=== PATIENT | male | born 1975 | race Caucasian/White ===

== ENCOUNTER 2021-09-30 15:20 | Emergency (ER) | payer OTHER, SELFPAY ==
[2021-09-30 15:32] VITALS: BP 139/90; PULSE 79; RESP 14; TEMP 36.9; O2SAT 98
--- NOTE | 2021-09-30 15:47 | W.ED.UPPEXIN ---
HPI - Extremity Injury (Upper) General: Chief Complaint: Skin/Abscess/Foreign Body Stated Complaint: Nail puncture Left wrist Time Seen by Provider: 09/30/21 15:41 Source: patient Mode of arrival: ambulatory Limitations: no limitations History of Present Illness: Patient is a nice 46-year-old male who presents to ED today with a complaint of a nail puncture wound near his right wrist. Patient states he was tearing tin down from an old barn when one of the pieces of tin had a nail protruding from it. He states the nail struck the ulnar aspect of his right wrist. Last tetanus is unknown. MD complaint: injury to: right and wrist Onset (ago): hour(s) Other injuries: none Place: outdoors Severity: moderate Relieving factors: immobilization Exacerbating factors: movement of extremity Context: direct blow and other (puncture wound) Associated symptoms: Reports no associated symptoms; Denies weakness in extremities Review of Systems Const: Denies: fever(s), chills, body aches, fatigue or malaise Musc: Reports: extremity pain (R forearm/wrist); Denies: extremity swelling, joint swelling, joint redness, joint warmth or limited range of motion Skin/Breast: Reports: other (puncture wound R forearm/wrist) Neuro: Denies: numbness in extremities, weakness in extremities or sensory changes [facility] ED PFSH: Social History Smoking and tobacco status: former smoker Physical Exam Const: COMMON NORMALS: no acute distress, average body habitus, patient oriented x3, no limitations, healthy appearing, alert and well nourished Extremity: GENERAL: Yes normal exam except as noted LEFT UPPER EXTREMITY: Yes wrist and Yes hand & digits OTHER: see image documentation Full Arm Back Right: 1. small puncture wound a few cm proximal to ulnar styloid; no bleeding present; no erythema, streaking, discharge; patient maintains normal sensory distally; cap refill normal; full ROM of digits against resistance Neuro: COMMON NORMALS: patient oriented x3, moves all extremities, no focal motor deficits and no sensory deficits noted SENSORIUM/ORIENTATION: Yes alert Course Vital Signs: Vital signs: Vital Signs Temperature 98.4 F 09/30/21 15:32 Pulse Rate 79 09/30/21 15:32 Respiratory Rate 14 09/30/21 15:32 Blood Pressure 139/90 05/10/22 15:32 Pulse Oximetry 98 09/30/21 15:32 MDM - Extremity Injury (Upper) Medical Decision Making XR negative. Small metallic fb that was seen does not correspond to area of injury today. He has nothing to suggest tendon/nerve involvement. Will go ahead and place on abx for puncture wound from old/dirty barn nail. Tetanus given today. Return to ED precautions given. Lab Data Radiology Impressions Wrist X-Ray 09/30/21 15:52 IMPRESSION: 1. Small metallic foreign body in the soft tissues of the thumb. 2. No acute finding Discharge Plan Discharge Patient Disposition: Home Clinical Impression: Puncture wound of forearm, right Qualifiers: Encounter type: initial encounter Qualified Code(s): S51.831A - Puncture wound without foreign body of right forearm, initial encounter Condition: Stable Prescriptions: New cephalexin 500 mg capsule 500 mg PO Q6H 7 Days Qty: 28 0RF No Action gentamicin 0.3 % drops 2 drp ophthalmic (eye) TID 7 Days Qty: 5 0RF Discharge Orders: Discharge ED (Routine); Ordered 09/30/21 Ordered By: Ileana Langston Patient Instructions: Puncture Wound (DC) Coding Level of Care Code ED 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
--- NOTE | 2021-09-30 15:52 | XRR_ITS ---
PROCEDURE INFORMATION: Exam: XR Right Wrist Exam date and time: 09/30/2021 4:02 PM Age: 46 years old Clinical indication: Injury or trauma; Right; Injury details: History--nail puncture lat. RT. Wrist TECHNIQUE: Imaging protocol: XR Right wrist. Views: 3 or more views. COMPARISON: No relevant prior studies available. FINDINGS: Bones/joints: Normal. Soft tissues: There is a small metallic foreign body in the soft tissues along the dorsum of the thumb near the MCP joint. XR/XR wrist RT min 3V* [id number] IMPRESSION: 1. Small metallic foreign body in the soft tissues of the thumb. 2. No acute finding
[2021-09-30] MEDS: tetanus-diphtheria tox (adult) 0.5 mL SDV IM (16:29)
== END 2021-09-30 16:44 | disposition home or self-care (01) ==
PROVIDERS: Emergency Provider Physician Assistant
DX: S61.531A Puncture wound without foreign body of right wrist, initial encounter (principal); W45.0XXA Nail entering through skin, initial encounter; Z23 Encounter for immunization
CPT/HCPCS: 73110; 90471; 90714; 99283

== ENCOUNTER → 2023-03-02 10:01 | Outpatient (BNVA) | payer MEDICAID, SELFPAY | PROVIDERS: PCP Registered Nurse; Visit Provider Registered Nurse | DX: I10 Essential (primary) hypertension (principal); E78.5 Hyperlipidemia, unspecified | CPT/HCPCS: 80053; 80061; 85025 ==

== ENCOUNTER 2023-03-19 11:43 | Outpatient (CLI) | payer MEDICAID, SELFPAY ==
--- NOTE | 2023-03-19 | ECG_ITS ---
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 Interpretive Statements NAME OF STUDY: TREADMILL STRESS TEST INDICATION: CP/HTN/FAMILY H/O CAD Baseline blood pressure of 128/73 mm Hg, heart rate 77 beats per minute. EKG showed sinus rhythm with normal ST-Ts. ??? The patient exercised for 9 min 39 sec on a [standard [facility] protocol]. Patient attained a maximum heart rate of 154 beats per minute( 88 % of the maximum predicted heart rate) with a blood pressure at the peak exercise of 162/70 mm Hg. The EKG at the peak exercise revealed sinus tachycardia with no significant ST-T wave changes. Patient did [not have any chest pain or any significant arrhythmis with the exercise]??? During the recovery phase, there were no new changes. Blood pressure at the end of the recovery phase was 158/72 mm Hg with a heart rate of 96 beats per minute. ??? CONCLUSION: 1. Normal EKG response to treadmill exercise. 2. No exercise-induced chest pain or cardiac arrhythmia. 3. Excellent exercise tolerance, attained a maximum of 13.5 METs. 4. Baseline normal blood pressure with normal response to exercise. Electronically Signed On 03-24-2023 4:08:06 CDT by Laurel Cuba M.D. [id number]
[2023-03-19 12:11] VITALS: BMI 28.8
[2023-03-19 12:52] VITALS: BP 158/72; PULSE 98
== END 2023-03-19 11:44 | disposition home or self-care (01) ==
LOC: CDL 11:44
PROVIDERS: PCP Registered Nurse; Visit Provider Registered Nurse
DX: R07.9 Chest pain, unspecified (principal); I10 Essential (primary) hypertension; Z82.49 Family history of ischemic heart disease and other diseases of the circulatory system
CPT/HCPCS: 93017

== ENCOUNTER → 2023-05-03 13:18 | Outpatient (BNVA) | payer MEDICAID, SELFPAY | PROVIDERS: PCP Registered Nurse; Visit Provider Registered Nurse | DX: Z12.5 Encounter for screening for malignant neoplasm of prostate (principal); E55.9 Vitamin D deficiency, unspecified; Z12.11 Encounter for screening for malignant neoplasm of colon; Z00.00 Encounter for general adult medical examination without abnormal findings; Z71.85 Encounter for immunization safety counseling; I10 Essential (primary) hypertension; R05.8 Other specified cough; T46.4X5A Adverse effect of angiotensin-converting-enzyme inhibitors, initial encounter | CPT/HCPCS: 82306; G0103 ==

== ENCOUNTER 2023-06-10 09:01 | Day surgery (SDC) | payer MEDICAID, SELFPAY ==
[2023-06-10 09:12] VITALS: BP 141/90; PULSE 95; RESP 18; TEMP 36.5; O2SAT 100; BMI 29.0
[2023-06-10] MEDS: sodium chloride 0.9% 1,000 ML 30 ML IV (09:27)
--- NOTE | 2023-06-10 09:39 | P.ANESASSM_ITS ---
Pre-Anesthetic Assessment Height/Weight: Height 1.68 m Weight 81.647 kg Temp Pulse Resp BP Pulse Ox O2 Del Method 97.7 F 95 18 141/90 100 Room Air 06/10/23 09:12 06/10/23 09:12 06/10/23 09:12 06/10/23 09:12 06/10/23 09:12 06/10/23 09:12 Operation Date: 06/10/23 10:00 Proposed Procedures p 13015 - screening colon Risk G0121,Z12.11(Not Applicable) - Luiz Christensen MD Familial anesthetic complications: None Was Beta Eliezer taken within 24 hours: N/A Was Clonidine taken within 24 hours: N/A Last intake: Intake Last Liquid Date 06/09/23 Last Liquid Time 22:00 Last Solid Date 05/11/23 Last Solid Time 18:00 Social No alcohol and No tobacco former smoker Exam alert, oriented x 3, clear to auscultation bilaterally and regular rate & rhythm Airway Mallampati: Class I Dentition: full CV/HEM Hypertension Hepatic hep C Anesthetic Plan ASA status: 2 Anesthesia: MAC Risk of > 500 ml blood loss (7ml/kg in children): No Medications/Allergies Home Medications Medication Instructions Recorded Confirmed Last Taken Type multivitamin 1 tab PO DAILY 02/26/23 06/08/23 06/07/23 History losartan 100 mg tablet 100 mg PO DAILY 30 days #30 tabs 06/08/23 06/10/23 06/09/23 Rx Allergies Allergy/AdvReac Type Severity Reaction Status Date / Time No Known Allergies Allergy Verified 06/10/23 09:11 Current Medications Generic Name Dose Route Start Last Admin Trade Name Ambrocioq PRN Reason Stop Dose Admin Sodium Chloride 1,000 mls @ 30 mls/hr 06/10/23 09:15 06/10/23 09:27 Sodium Chloride 0.9% IV 30 mls/hr .Q24H GREG Administration PFSH Anesthesia Medical History Intermittent chest pain Family history of heart disease History of hepatitis C Surgical History No pertinent past surgical history Family History Brother Cancer, Onset Age: 44 pancrease Grandmother Diabetes maternal Father Hypertension Myocardial failure in his 60's from ID Stroke Grandfather Stroke maternal and paternal Myocardial failure maternal and paternal Denies family history of CAD (coronary artery disease) Dementia Hyperlipidemia Chronic kidney disease (CKD) Lung disease Social History Smoking and tobacco/nicotine status: former use of tobacco/nicotine Quit status (tobacco/nicotine): has quit using Year quit tobacco: 2017 Alcohol intake: former Substance/Drug Use: former Adopted: No Caregiver/support person: No Lives independently: No Household members: spouse Marital status: service: No Current occupational status: employed Sexually active: Yes Do you think of yourself as: Straight/Heterosexual Current gender identity: Male Kayleen/Mormonism: Zoroastrian Data Anesthesia Cardiac Studies: No Data to Display
--- NOTE | 2023-06-10 10:13 | P.HP_ITS ---
Same Day Surgery H&P Indication for Procedure/HPI DATE OF PROCEDURE: June 10, 2023 CHIEF COMPLAINT/INDICATIONFOR SURGICAL PROCEDURE: need for screening colonoscopy PREOP DIAGNOSIS: need for screening colonoscopy PLANNED PROCEDURE: Operation Date: 06/10/23 10:00 Proposed Procedures p 26585 - screening colon Risk G0121,Z12.11(Not Applicable) - Luiz Christensen MD Medications/Allergies* Home Medications Medication Instructions Recorded Confirmed Type multivitamin 1 tab PO DAILY 02/26/23 06/08/23 History Allergies/Adverse Reactions Allergy/AdvReac Type Severity Reaction Status Date / Time No Known Allergies Allergy Verified 06/10/23 09:11 Current Medications: Generic Name Dose Route Start Last Admin Trade Name Freq PRN Reason Stop Dose Admin Sodium Chloride 1,000 mls @ 30 mls/hr 06/10/23 09:15 06/10/23 09:27 Sodium Chloride 0.9% IV 30 mls/hr .Q24H GREG Administration Pertinent History/Comorbid Conditions* Medical History (Updated 04/01/23 @ 14:56 by GONZALO Garcia) Intermittent chest pain Family history of heart disease History of hepatitis C Surgical History (Updated 02/26/23 @ 13:50 by GONZALO Ortiz) No pertinent past surgical history Family History (Updated 02/26/23 @ 13:46 by GONZALO Ortiz) Brother Father Diabetes Grandmother maternal Myocardial failure Father in his 60's from MS Grandfather maternal and paternal Cancer Brother, Onset Age: 44 pancrease Hypertension Father Stroke Father Grandfather maternal and paternal Denies family history of CAD (coronary artery disease) Dementia Hyperlipidemia Chronic kidney disease (CKD) Lung disease Social History Smoking and tobacco/nicotine status: former use of tobacco/nicotine Quit status (tobacco/nicotine): has quit using Year quit tobacco: 2017 Alcohol intake: former Substance/Drug Use: former Adopted: No Caregiver/support person: No Lives independently: No Household members: spouse Marital status: service: No Current occupational status: employed Sexually active: Yes Do you think of yourself as: Straight/Heterosexual Current gender identity: Male Kayleen/Taoism: Confucianism Pertinent Exam Findings alert, oriented x 3 and clear to auscultation bilaterally Recommendations Surgery/Procedure today Coding Level of Care Code Acute Code for Chg Fwd
[2023-06-10 10:42] VITALS: BP 110/70; PULSE 81; RESP 18; TEMP 36.1; O2SAT 96
[2023-06-10 10:52] VITALS: BP 135/96; PULSE 72; RESP 16; O2SAT 100
--- NOTE | 2023-06-10 11:15 | ANE.PACU2 ---
Inpatient post-anesthesia follow up: Airway intact: Yes Vital signs: Temperature 97.0 F Pulse Rate 72 Respiratory Rate 16 Blood Pressure 135/96 Pulse Oximetry 100 Oxygen Delivery Me thod Room Air Oxygen Flow Rate Fraction of Inspir ed Oxygen Hydration adequate: Yes Nausea and vomiting: No Pain level: 1 Mental status: Baseline
== END 2023-06-10 11:15 | disposition home or self-care (01) ==
PROVIDERS: PCP Registered Nurse; Visit Provider Surgery
PROC: 0DJD8ZZ Inspection of Lower Intestinal Tract, Via Natural or Artificial Opening Endoscopic (ICD-10-PCS; CPT 45378; principal; 2023-06-10 10:00)
DX: Z12.11 Encounter for screening for malignant neoplasm of colon (principal); Z82.49 Family history of ischemic heart disease and other diseases of the circulatory system; Z86.19 Personal history of other infectious and parasitic diseases; Z87.891 Personal history of nicotine dependence
CPT/HCPCS: 45378; J2704; J7030

== ENCOUNTER → 2023-07-19 15:28 | Outpatient (BNVA) | payer MEDICAID, SELFPAY | PROVIDERS: PCP Registered Nurse; Visit Provider Registered Nurse | DX: M54.9 Dorsalgia, unspecified (principal) | CPT/HCPCS: 81000 ==

== ENCOUNTER → 2023-08-17 10:03 | Outpatient (BNVA) | payer MEDICAID, SELFPAY | PROVIDERS: PCP Registered Nurse; Visit Provider Nurse Practitioner Family | DX: R07.81 Pleurodynia (principal) | CPT/HCPCS: 71046 ==

== ENCOUNTER → 2023-12-15 08:50 | Outpatient (BNVA) | payer MEDICAID, SELFPAY | PROVIDERS: PCP Registered Nurse; Visit Provider Registered Nurse | DX: L98.9 Disorder of the skin and subcutaneous tissue, unspecified (principal) | CPT/HCPCS: 88305 ==

== ENCOUNTER → 2024-06-20 14:41 | Outpatient (BNVA) | payer MEDICAID, SELFPAY | PROVIDERS: PCP Registered Nurse; Visit Provider Registered Nurse | DX: J06.9 Acute upper respiratory infection, unspecified (principal) | CPT/HCPCS: 87400 ==

== ENCOUNTER 2024-10-04 12:54 | Outpatient (CLI) | payer MEDICAID, SELFPAY ==
--- NOTE | 2024-10-04 13:05 | XR_ITS ---
WS: [id number] Exam: XR thoracic spine 3V* [id number] Date/Time of Exam: 10/04/2024 1:16 PM Reason For Exam: M54.6 - Pain in thoracic spine No fracture identified. No scoliosis. Paraspinal soft tissues are unremarkable. XR/XR thoracic spine 3V* [id number] IMPRESSION: 1. No fracture or malalignment.
--- NOTE | 2024-10-04 13:05 | XR_ITS ---
WS: [id number] No fracture noted. Slight spondylosis. Posterior elements are intact. Disc spaces are preserved. Several small calcifications seen over the LEFT renal silhouette that might represent renal calculi. XR/XR lumbar spine 2-3V* [id number] IMPRESSION: 1. Mild spondylosis otherwise negative lumbar spine study.
== END 2024-10-04 12:55 | disposition home or self-care (01) ==
PROVIDERS: PCP Registered Nurse; Visit Provider Registered Nurse
DX: M54.6 Pain in thoracic spine (principal); M47.816 Spondylosis without myelopathy or radiculopathy, lumbar region; R93.422 Abnormal radiologic findings on diagnostic imaging of left kidney
CPT/HCPCS: 72072; 72100